=== PATIENT | female | born 1995 | race Caucasian/White ===

== ENCOUNTER → 2018-07-11 | Outpatient (CLI) | payer OTHER ==
--- NOTE | 2018-07-11 09:50 | REP ---
Right shoulder series: Four views. History: Right shoulder pain. Findings: The right glenohumeral and acromioclavicular joints are normally aligned. No evidence of fracture or subluxation is seen. There is subtle old irregularity of the distal clavicle which is unchanged from comparison chest x-ray January 30, 2013. This may be developmental or old post-traumatic change. Periarticular soft tissues are unremarkable. Impression: No acute abnormality. Electronically Signed by Paul Suggs MD 07/11/2018 09:41 A
== END ==
LOC: M WUC 09:18
PROVIDERS: ATTEND Physician Assistant
DX: M25.511 Pain in right shoulder (principal)

== ENCOUNTER → 2019-06-07 | Outpatient (REF) | payer OTHER | LOC: M LAB REF 13:06 | PROVIDERS: ATTEND Physician Assistant | DX: J02.9 Acute pharyngitis, unspecified (principal) ==